=== PATIENT | male | born 1960 | race Caucasian/White ===

== ENCOUNTER 2016-11-20 07:21 | Day surgery (SDC) | payer OTHER ==
[~2016-11-20] VITALS: Ht 167.6 cm; Wt 88.7 kg
[~2016-11-20 07:21] MED LIST: ALPR0.25 PO; ASPI325T4 PO; ATOR20TA38 PO; GABA-526 PO; HYDR-3498 PO; MELO-216 PO; NORT25CA PO; OMEP20CA9 PO; QUET1TAB PO; SERT50TA6 PO; TEMA30CA PO; TEN25 PO; cialis PO
[2016-11-20 07:59] VITALS: Ht 167.6 cm; Wt 88.7 kg
[2016-11-20] MEDS ORDERED: PROPOFOL 40 ML ONE (08:20)
[2016-11-20] MEDS ORDERED: LIDOCAINE 2% (SDV) 5 ML INJ ONE (08:20)
[2016-11-20] MEDS ORDERED: TEN25 PO (08:21)
[2016-11-20] MEDS ORDERED: ALPR0.5T10 PO (08:21)
[2016-11-20] MEDS ORDERED: AMLODIPINE PO (08:21)
[2016-11-20] MEDS ORDERED: GABA-526 PO (08:21)
[2016-11-20] MEDS ORDERED: ASPI81TA3 PO (08:21)
[2016-11-20] MEDS ORDERED: MELO-109 PO (08:21)
[2016-11-20] MEDS ORDERED: ATOR20TA38 PO (08:21)
[2016-11-20 08:31] VITALS: BP 126/80; PULSE 69; RESP 13
[2016-11-20 09:30] VITALS: BP 120/76; RESP 20
--- NOTE | 2016-11-20 11:45 | GILP ---
DATE OF PROCEDURE: 11/20/2016 NAME OF PROCEDURE: Esophagogastroduodenoscopy and biopsy. SURGEON: Miranda Marrufo MD PREOPERATIVE DIAGNOSIS: Abdominal pain. POSTOPERATIVE DIAGNOSES: 1. Hiatal hernia. 2. Gastroesophageal reflux disease. 3. Gastritis. 4. Ulcerated polyp on the gastric antrum and biopsies were taken for histopathology. INDICATION FOR THE PROCEDURE: Mr. Jersey Cunningham is a 56-year-old male patient who had upper abdomi nal pain, not responding to therapy. The patient also had iron deficiency anemia. The patient was scheduled for endoscopic examination for further evaluation. The procedure and possible complications are well explained to the patient. The patient understood and consented to the procedure. DESCRIPTION OF PROCEDURE: Under the influence of anesthesia, the gastroscope was carefully introduc ed into the esophagus and under direct vision, it was advanced to the stomach and through the pyloru s into the duodenal bulb and descending duodenum. FINDINGS: ESOPHAGUS: The patient had hiatal hernia and gastroesophageal reflux disease. STOMACH: The patient had gastritis. He also had an ulcerative flat polyp on the gastric antrum and multiple biopsies were taken for histopathology. DUODENUM: Normal. He tolerated the procedure very well and there was no complication from the procedure. At the end o f the procedure, he was awake with stable vital signs and he was discharged home to the care of his family. IMPRESSION: 1. Hiatal hernia. 2. Gastroesophageal reflux disease. 3. Gastritis. 4. Ulcerative polyp on the gastric antrum and multiple biopsies were taken for histopathology. PLAN: 1. Continue omeprazole. 2. Add Zantac 300 mg p.o. at bedtime. 3. Stop aspirin. 4. Await histopathology report. Dictated By: MIRANDA MARRUFO MD GD/NTS Conf#: [id number] DID#: [id number] CC: MIRANDA MARRUFO MD;*EndCC*
== END 2016-11-20 09:24 | disposition home or self-care (01) ==
LOC: GIL 07:21
PROVIDERS: ATTEND Internal Medicine Gastroenterology
DX: K29.30 Chronic superficial gastritis without bleeding (principal); B96.81 Helicobacter pylori [H. pylori] as the cause of diseases classified elsewhere; K21.9 Gastro-esophageal reflux disease without esophagitis; K44.9 Diaphragmatic hernia without obstruction or gangrene; K31.7 Polyp of stomach and duodenum; K25.9 Gastric ulcer, unspecified as acute or chronic, without hemorrhage or perforation; E78.5 Hyperlipidemia, unspecified; I10 Essential (primary) hypertension; E66.01 Morbid (severe) obesity due to excess calories; Z68.31 Body mass index [BMI] 31.0-31.9, adult
CPT/HCPCS: 43239; Z7610; 88305; 88312

== ENCOUNTER 2017-03-08 00:34 | Inpatient (IN) | payer OTHER ==
[~2017-03-08] VITALS: Ht 172.7 cm; Wt 92.0 kg
[~2017-03-08 00:34] MED LIST changes: -ALPR0.25 PO; +ALPR0.5T10 PO; +AMLODIPINE PO; -ASPI325T4 PO; +ASPI81TA3 PO; +ATEN-138 PO; +MELO-109 PO; -MELO-216 PO; -TEN25 PO
[2017-03-08] MEDS ORDERED: ONDANSETRON 4 MG INJ IV STA (01:17)
[2017-03-08] MEDS ORDERED: HYDROmorphONE 1 MG/ML SYG IV STA (01:17)
[2017-03-08] MEDS ORDERED: SOD CHLORIDE 0.9% 500 ML IV STA (01:17)
[2017-03-08 01:42] LABS: ADD SCAN DIFF NO
[2017-03-08 01:44] LABS: BASOPHIL # 0.1 10^3/ul (0.0-0.1); BASOPHILS % 0.3 % (0.0-2.0); EOSINOPHILS # 0.1 10^3/ul (0.0-0.5); EOSINOPHILS % 0.3 % (0.0-7.0); HEMATOCRIT 37.6 % (42.0-52.0); HEMOGLOBIN 12.9 g/dl (14.0-18.0); LYMPHOCYTES # 2.1 10^3/ul (0.8-2.9); LYMPHOCYTES % 11.8 % (15.0-51.0); MEAN CORPUSCULAR HEMOGLOBIN 28.2 pg (29.0-33.0); MEAN CORPUSCULAR HGB CONC 34.3 g/dl (32.0-37.0); MEAN CORPUSCULAR VOLUME 82.1 fl (82.0-101.0); MEAN PLATELET VOLUME 9.4 fl (7.4-10.4); MONOCYTE # 1.2 10^3/ul (0.3-0.9); MONOCYTES % 6.6 % (0.0-11.0); NEUTROPHIL # 14.6 10^3/ul (1.6-7.5); NEUTROPHILS % 80.4 % (39.0-77.0); PLATELET COUNT 306 10^3/UL (140-415); RED BLOOD COUNT 4.58 10^6/ul (4.70-6.10); RED CELL DISTRIBUTION WIDTH 12.7 % (11.5-14.5); WHITE BLOOD COUNT 18.1 10^3/ul (4.8-10.8)
[2017-03-08 02:06] LABS: ALBUMIN 4.5 g/dl (3.3-4.9); ALBUMIN/GLOBULIN RATIO 1.4; BILIRUBIN,INDIRECT 0.3 mg/dl (0-1.1); BILIRUBIN,TOTAL 0.3 mg/dl (0.2-1.3); CALCIUM 9.4 mg/dl (8.4-10.2); CREATININE 0.96 mg/dl (0.61-1.24); POTASSIUM 3.7 mmol/L (3.5-5.1); TOTAL PROTEIN 7.7 g/dl (6.1-8.1)
[2017-03-08] MEDS ORDERED: ACYCLOVIR 500 MG in SOD CHLORIDE 0.9% 100 ML IVPB ONE (02:30)
[2017-03-08 02:57] VITALS: TEMP 98.6
--- NOTE | 2017-03-08 03:19 | ERA ---
ER Documentation Chief Complaint Date/Time DATE: 03/08/17 TIME: 03:17 Chief Complaint fever, bodyache x 1 week. rash to under lt breast HPI Fever and body aches for 1 week. He started noticing a rash that was vesicular on the left breast for the past 4-5 days. No nausea no vomiting no chills. He says body aches are getting worse. No other current issues. ROS All systems reviewed and are negative except as per history of present illness. Medications Home Meds Reported Medications Alprazolam (Alprazolam) 0.5 Mg Tab.rapdis, 0.5 MG PO BID, TAB 11/20/16 Gabapentin* (Gabapentin*) 600 Mg Tablet, 600 MG PO TID, #90 TAB 11/20/16 Atenolol (Tenormin) 25 Mg Tab, 25 MG PO DAILY, #30 TAB 11/20/16 Meloxicam* (Meloxicam*) 7.5 Mg Tablet, 5 MG PO DAILY, #30 TAB 11/20/16 Aspirin* (Aspirin* Chew) 81 Mg Tab.chew, 81 MG PO DAILY, TAB.CHEW 11/20/16 Atorvastatin Calcium* (Atorvastatin Calcium*) 20 Mg Tablet, 20 MG PO DAILY, #30 TAB 11/20/16 [Amlodipine] No Conflict Check, 5 MG PO DAILY 11/20/16 Temazepam* (Temazepam*) 30 Mg Capsule, 30 MG PO HS Y for INSOMNIA, CAP 09/23/16 Quetiapine Fumarate (Seroquel Xr) 1 Each [id number], 1 EACH PO DAILY 09/23/16 Nortriptyline Hcl* (Nortriptyline Hcl*) 25 Mg Capsule, 25 MG PO HS, CAP 09/23/16 Sertraline Hcl* (Sertraline Hcl*) 50 Mg Tablet, 50 MG PO DAILY, #30 TAB 09/23/16 [cialis] No Conflict Check, PO DAILY 09/23/16 Hydrocodone Bit-Acetaminophen* ([place]*) 5-325 Mg Tab, 1 TAB PO Q4H Y for SEVERE PAIN LEVEL 7-10, TAB 10/01/14 Omeprazole* (Prilosec*) 20 Mg Capsule.dr, 20 MG PO DAILY 02/02/11 Allergies Allergies: Coded Allergies: morphine (Verified Allergy, Intermediate, 11/20/16) HEADACHE CHEST PAIN adhesive tape (Verified Allergy, Unknown, rash, pruritus, 11/20/16) PMhx/Soc History of Surgery: Yes (LOW BACK X3, POST HEAD VEIN REMOVED) Anesthesia Reaction: No Hx Neurological Disorder: No Hx Respiratory Disorders: No Hx Cardiac Disorders: No (HTN, HIGH CHOL) Hx Psychiatric Problems: Yes (DEPRESSION ON MED, ANXIETY, SUISIDE ATTEMPT 2007 ) Hx Miscellaneous Medical Probl: No Hx Alcohol Use: No Hx Substance Use: No Hx Tobacco Use: Yes (QUIT 2004) Physical Exam Vitals Vital Signs Date Time Temp Pulse Resp B/P Pulse Ox O2 Delivery O2 Flow Rate FiO2 03/08/17 02:57 98.6 03/08/17 01:54 99.1 86 18 127/82 98 Room Air 03/08/17 00:45 99.7 99 18 128/72 99 Physical Exam Const: [] Head: Atraumatic Eyes: Normal Conjunctiva ENT: Normal External Ears, Nose and Mouth. Neck: Full range of motion..~ No meningismus. Resp: Clear to auscultation bilaterally Cardio: Regular rate and rhythm, no murmurs Abd: Soft, non tender, non distended. Normal bowel sounds Skin: Vesicular rash crosses multiple dermatomes on the left side of the body. Back: No midline or flank tenderness Ext: No cyanosis, or edema Neur: Awake and alert Psych: Normal Mood and Affect Result Diagram: 03/08/175 03/08/17 0125 Results 24 hrs Laboratory Tests Test 03/08/17 01:25 White Blood Count 18.110^3/ul Red Blood Count 4.5810^6/ul Hemoglobin 12.9g/dl Hematocrit 37.6% Mean Corpuscular Volume 82.1fl Mean Corpuscular Hemoglobin 28.2pg Mean Corpuscular Hemoglobin Concent 34.3g/dl Red Cell Distribution Width 12.7% Platelet Count 76253^3/UL Mean Platelet Volume 9.4fl Neutrophils % 80.4% Lymphocytes % 11.8% Monocytes % 6.6% Eosinophils % 0.3% Basophils % 0.3% Nucleated Red Blood Cells % 0.0/100WBC Neutrophils # 14.610^3/ul Lymphocytes # 2.110^3/ul Monocytes # 1.210^3/ul Eosinophils # 0.110^3/ul Basophils # 0.110^3/ul Nucleated Red Blood Cells # 0.010^3/ul Sodium Level 134mmol/L Potassium Level 3.7mmol/L Chloride Level 101mmol/L Carbon Dioxide Level 23mmol/L Anion Gap 14 Blood Urea Nitrogen 8mg/dl Creatinine 0.96mg/dl Glucose Level 115mg/dl Calcium Level 9.4mg/dl Total Bilirubin 0.3mg/dl Direct Bilirubin 0.00mg/dl Indirect Bilirubin 0.3mg/dl Aspartate Amino Transf (AST/SGOT) 38IU/L Alanine Aminotransferase (ALT/SGPT) 62IU/L Alkaline Phosphatase 66IU/L Total Protein 7.7g/dl Albumin 4.5g/dl Globulin 3.20g/dl Albumin/Globulin Ratio 1.40 Lipase 27U/L Current Medications Medications (Trade) Dose Ordered Sig/Myla Route PRN Reason Start Time Stop Time Status Last Admin Dose Admin Sodium Chloride (NS) 500 ml @ 500 mls/hr Q1H STAT IV 03/08/17 01:17 03/08/17 02:16 DC 03/08/17 01:33 Ondansetron HCl (Zofran Inj) 4 mg ONCE STAT IV 03/08/17 01:17 03/08/17 01:19 DC 03/08/17 01:33 Hydromorphone HCl 1 mg 1 mg ONCE STAT IV 03/08/17 01:17 03/08/17 01:19 DC 03/08/17 01:33 Acyclovir/Sodium Chloride (Zovirax/NS) 100 ml @ 100 mls/hr ONCE ONCE IVPB 03/08/17 02:30 03/08/17 03:29 03/08/17 02:51 Procedures/MDM EKG: Rate/Rhythm: Normal Sinus Rhythm QRS, ST, T-waves: No changes consistent w/ acute ischemia Impression: No evidence of ischemia or arrhythmia Chest X-ray 1V Interpreted by me: Soft Tissue: No acute abnormalities Bones: No acute abnormalities Mediastinum/Cardiac Silhouette/Lungs: No acute abnormalities Medical decision-makin-year-old male as well as be active herpetic zoster across multiple dermatomes. Given the multiple dermatomal distribution, patient has been started on intravenous acyclovir and will be admitted to the medical surgical unit to hospitalist. Departure Diagnosis: Primary Impression: Zoster Qualified Code: B02.9 - Herpes zoster without complication Condition: Serious MOGHADAM,YARED S. Mar 08, 2017 03:19
[2017-03-08 04:29] VITALS: Ht 172.7 cm; Wt 92.0 kg
[2017-03-08] MEDS ORDERED: NON-FORMULARY/PATIENT OWN MED (Temazepam* 30 MG) PO PRN (04:30)
[2017-03-08] MEDS ORDERED: ONDANSETRON 4 MG INJ IV PRN ×2 (04:30)
[2017-03-08] MEDS ORDERED: morphine 4 MG/ML VIAL IV PRN (04:30)
[2017-03-08] MEDS ORDERED: HYDROCODONE/APAP (10/325) TAB PO PRN ×2 (04:30)
[2017-03-08] MEDS ORDERED: morphine 2 MG INJ IV PRN (04:30)
[2017-03-08] MEDS ORDERED: NACL 0.9% 3 ML SYG IV SCH (04:30)
[2017-03-08] MEDS ORDERED: ACETAMINOPHEN 325 MG TAB PO PRN ×2 (04:30)
[2017-03-08] MEDS ORDERED: HYDROmorphONE 1 MG/ML SYG IV PRN ×2 (05:00)
[2017-03-08] MEDS ORDERED: ZOLPIDEM 5 MG TAB PO PRN (05:00)
--- NOTE | 2017-03-08 05:13 | HP ---
DATE OF ADMISSION: 03/08/2017 CHIEF COMPLAINT: Body rash and pain. HISTORY OF PRESENT ILLNESS: The patient is a 57-year-old male with a history of hypertension, dysli pidemia, GERD, depression/anxiety, and history of parietooccipital craniotomy with mild encephalomal acia who presented to the emergency department with the above stated chief complaint. He stated abo ut a week ago he started noticing some fluid filled rashes on the left side of his body, over his le ft ribcage area associated with pain. He also reported fever and chills as well. He has been takin g Gabapentin and [place], but the pain persisted. He denied any chest pain, shortness of breath, sick contacts, or recent travel. When he presented to the ER, he had a temperature of 99.7, and he was tachycardic with a heart rate of almost 100. Otherwise, the rest of his vitals were stable. Laboratory value shows a WBC of 18,0 00, hemoglobin 12.9. Sodium 134. Otherwise, the rest of his CBC and CMP are within acceptable rang e. While he was in the ER, it was determined that the patient's rash is consistent with shingles, and a s such, he was given a dose of acyclovir. Currently, he is admitted to the med/surg [facility] and [facility] that he has 7/10 pain. He was given 1 mg of Dilaudid a couple of hours prior. REVIEW OF SYSTEMS: A 12-point review was performed and negative except as mentioned in HPI. PAST MEDICAL HISTORY: As per HPI. PAST SURGICAL HISTORY: Craniotomy and multiple lumbar spine surgeries due to a work related injury. SOCIAL HISTORY: He smoked half a pack a day off and on since the age of 16, but he quit about 10 ye ars ago. He used to drink about 3 cans of beer every day for at least 10 years, but he quit 10 year s ago. Denied a history of illicit drug use. ALLERGIES: NO KNOWN DRUG ALLERGIES. HOME MEDICATIONS: 1. Atenolol. 2. Lipitor. 3. Alprazolam. 4. Aspirin. 5. Gabapentin. 6. [place]. 7. Meloxicam. 8. Nortriptyline. 9. Seroquel 10. Sertraline. 11. Temazepam. 12. Prilosec. 13. Norvasc. 14. Cialis. PHYSICAL EXAMINATION: VITAL SIGNS: Stable. GENERAL: The patient lying in bed in some discomfort due to pain. He is, however, alert and orient ed and answering questions appropriately. HEENT: No obvious head deformity. Pupils are reactive to light. Extraocular muscles intact. CARDIOVASCULAR: Regular rate and rhythm with no extra sounds. LUNGS: Clear. ABDOMEN: Soft, nontender, nondistended. Positive bowel sounds. EXTREMITIES: No edema. SKIN: On the left side below his breast, there is a dried/crusted skin rash with minimal erythema. LABORATORY DATA: Pertinent positive results as mentioned in the HPI. IMPRESSION: 1. Shingles. 2. Sepsis, as evidenced by leukocytosis and tachycardia, most likely secondary to above. 3. History of hypertension, blood pressure within goal 4. Mild hyponatremia. 5. History of schizophrenia, depression, and anxiety. 6. History of stage I diastolic dysfunction. 7. History of multiple lumbar spine surgeries. 8. History of craniotomy with mild encephalomalacia, based on CT scan from September of this year. PLAN: The patient's rash and his pain seems consistent with shingles. He will be continued with ac yclovir. We will place an ID consult. He will be provided pain medication as needed. We will foll ow up on culture results given the presentation of sepsis. We will continue his home medications wi th adjustments as needed. The patient did receive NS IV fluid in the ER. We will follow up on repe at [facility] to evaluate for resolution of hyponatremia. Further workup and management per clinical course. Dictated By: YARED YUEN/CANDI Conf#: [id number] DID#: [id number]
[2017-03-08] MEDS: PANTOPRAZOLE (EC) 40 MG TAB PO SCH (06:05)
[2017-03-08 07:34] VITALS: BP 111/63; RESP 18
[2017-03-08] MEDS ORDERED: GABAPENTIN 300 MG CAP PO SCH (09:00)
[2017-03-08] MEDS ORDERED: ATORVASTATIN 20 MG TAB PO SCH (09:00)
[2017-03-08] MEDS ORDERED: QUETIAPINE FUMARATE PO SCH (09:00)
[2017-03-08] MEDS ORDERED: ACYCLOVIR 800 MG TAB PO SCH (09:00)
[2017-03-08] MEDS ORDERED: NON-FORMULARY/PATIENT OWN MED (Omeprazole* (Prilosec*) 20 MG) PO SCH (09:00)
[2017-03-08] MEDS ORDERED: ALPRAZOLAM 0.5 MG PO SCH (09:00)
[2017-03-08] MEDS: ASPIRIN 81 MG TAB PO SCH (09:31)
[2017-03-08] MEDS: ATENOLOL 25 MG TAB PO SCH (09:32)
[2017-03-08] MEDS: ALPRAZOLAM 0.25 MG TAB PO SCH ×2 (09:41→20:32)
[2017-03-08] MEDS: SERTRALINE 50 MG TAB PO SCH (09:41)
[2017-03-08] MEDS ORDERED: [UNRECOGNIZED DRUG - REMARK] XX SCH (10:00)
--- NOTE | 2017-03-08 10:10 | PN ---
Date/Time of Note Date/Time of Note DATE: 03/08/17 TIME: 10:02 Assessment/Plan VTE Prophylaxis VTE Prophylaxis Intervention: SCD's Lines/Catheters IV Catheter Type (from Nrsg): Saline Lock Urinary Cath still in place: No Assessment/Plan Assessment/Plan 57 yo M with pmhx obesity, anxiety/depression, chronic pain?, HTN presented with c/o diffuse body pain x 1 week and subjective fevers in setting of recent shingles infection. Admit eval notable for leukocytosis with L shift. Etio unclear-->consider infectious source (?ie UTI given c/o dysuria) v reactive from recent shingles. #myalgias and leukocytosis: check UA, urine culture, blood culture hold abx as no clear infectious focus yet elucidated defer lung imaging as pt without c/o cough or sore throat check CK given pt on statin at home #recent shingles: rash onset >7 days, lesions already appear crusted over given rash onset >72 hours prior to presentation and do not appear to cross dermatome on my clinical eval, no indication to continue antivrals hold neurontin pending continued workup check HIV status #hyponatremia: recheck labs #depression/anxiety cont home TCA, SSRI, seroquel #HTN: cont home BP meds #HL: holding statin as above pending CK misc: cont home asa prophx: LMWH and SCDs, cont home PPI dispo pending resolution of leukocytosis and/or determination of its etio Subjective 24 Hr Interval Summary Free Text/Dictation Language line used to facilitate conversation with patient and . Pt's current concern is 9 days of diffuse body discomfort, myalgias, feels like skin is burning. Also reports several days of dysuria. Reports fevers at home, Tmax 100F several days ago. Pt reports his L torso rash began 7 days ago. Exam/Review of Systems Vital Signs Vitals Vital Signs Date Time Temp Pulse Resp B/P Pulse Ox O2 Delivery O2 Flow Rate FiO2 03/08/17 07:34 99.0 74 18 111/63 18 03/08/17 01:54 Room Air Intake and Output 03/07/17 03/07/17 03/08/17 15:00 23:00 07:00 Intake Total 100 ml Balance 100 ml Exam anxious, laying in bed no mrg lungs clear mild abd discomfort diffusely +suprapubic discomfort no CVA tenderness nl skin: +4 cm cluster of dried vessicles on L anterior thorax in T9 distribution. No lesions on patient's back. No rashes elsewhere no le edema labs from admission reviewed Results Result Diagram: 03/08/17 0125 03/08/17 0125 Results 24 hrs Laboratory Tests Test 03/08/17 01:25 White Blood Count 18.1 #H Red Blood Count 4.58 L Hemoglobin 12.9 L Hematocrit 37.6 L Mean Corpuscular Volume 82.1 Mean Corpuscular Hemoglobin 28.2 L Mean Corpuscular Hemoglobin Concent 34.3 Red Cell Distribution Width 12.7 Platelet Count 306 Mean Platelet Volume 9.4 # Neutrophils % 80.4 H Lymphocytes % 11.8 L Monocytes % 6.6 Eosinophils % 0.3 Basophils % 0.3 Nucleated Red Blood Cells % 0.0 Neutrophils # 14.6 H Lymphocytes # 2.1 Monocytes # 1.2 H Eosinophils # 0.1 Basophils # 0.1 Nucleated Red Blood Cells # 0.0 Sodium Level 134 L Potassium Level 3.7 Chloride Level 101 Carbon Dioxide Level 23 Anion Gap 14 Blood Urea Nitrogen 8 Creatinine 0.96 Glucose Level 115 Calcium Level 9.4 Total Bilirubin 0.3 Direct Bilirubin 0.00 Indirect Bilirubin 0.3 Aspartate Amino Transf (AST/SGOT) 38 Alanine Aminotransferase (ALT/SGPT) 62 Alkaline Phosphatase 66 Total Protein 7.7 Albumin 4.5 Globulin 3.20 Albumin/Globulin Ratio 1.40 Lipase 27 Medications Medications Current Medications Ondansetron HCl (Zofran Inj) 4 mg Q6H PRN IV NAUSEA AND/OR VOMITING; Start 09/12 at 04:30 Acetaminophen (Tylenol Tab) 650 mg Q6H PRN PO PAIN LEVEL 1-3 OR FEVER; Start at 04:30 Aspirin (Aspirin) 81 mg DAILY PO Last administered on 03/08/17 09:31; Admin Dose 81 MG; Start 03/08/17 at 09:00 Atenolol (Tenormin) 25 mg DAILY PO Last administered on 03/08/17 09:32; Admin Dose 25 MG; Start 03/08/17 at 09:00 Gabapentin (Neurontin) 600 mg TID PO Last administered on 03/08/17 09:32; Admin Dose 600 MG; Start 03/08/17 at 09:00 Meloxicam (Mobic) 5 mg DAILY PO ; Start 03/08/17 at 09:00 Nortriptyline HCl (Aventyl) 25 mg HS PO ; Start 03/08/17 at 21:00 Sertraline HCl (Zoloft) 50 mg DAILY PO Last administered on 03/08/17 09:41; Admin Dose 50 MG; Start 03/08/17 at 09:00 Miscellaneous Information 1 each DAILY PO ; Start 03/08/17 at 09:00; Status UNV Acetaminophen/ Hydrocodone Bitart ([place] ()) 1 tab Q4H PRN PO PAIN; Start 03/08/17 at 05:00 Alprazolam (Xanax) 0.25 mg BID PO Last administered on 03/08/17 09:41; Admin Dose 0.25 MG; Start 03/08/17 at 09:00 Pantoprazole (Protonix Tab) 40 mg DAILY@06 PO Last administered on 03/08/17 06 :05; Admin Dose 40 MG; Start 03/08/17 at 06:00 Hydromorphone HCl (Dilaudid) 1 mg Q4H PRN IV PAIN Last administered on 06:06; Admin Dose 1 MG; Start 03/08/17 at 05:00 Miscellaneous Information (*Order Clarification Bulletin) MEDICATION REQUIRES CLARIFICATI... Q8H XX ; Start 03/08/17 at 10:00 RACHELLE ROB MD Mar 08, 2017 10:10
[2017-03-08 11:27] LABS: ADD UMIC YES; URINE BILIRUBIN (Dip) NEGATIVE (NEGATIVE); URINE BLOOD (Dip) TRACE (NEGATIVE); URINE COLOR LT. YELLOW (YELLOW); URINE GLUCOSE (Dip) NEGATIVE (NEGATIVE); URINE KETONES (Dip) NEGATIVE (NEGATIVE); URINE LEUKOCYTE ESTERASE (Dip) 2+ (NEGATIVE); URINE NITRITE (Dip) NEGATIVE (NEGATIVE); URINE TOTAL PROTEIN (Dip) NEGATIVE (NEGATIVE); URINE UROBILINOGEN (Dip) 0.2 E.U./dL (0.1-1.0)
[2017-03-08 11:36] LABS: BACTERIA,URINE MODERATE; URINE RBCS 0-2 /HPF (0)
[2017-03-08] MEDS: MELOXICAM 7.5 MG TAB PO SCH (12:02)
[2017-03-08] MEDS: HYDROCODONE/APAP (10/325) TAB PO PRN (15:32)
[2017-03-08] MEDS ORDERED: traMADol 50 MG TAB PO PRN (18:00)
[2017-03-08 20:09] VITALS: BP 125/66; RESP 20
[2017-03-08] MEDS: NORTRIPTYLINE 25 MG CAP PO SCH (20:34)
[2017-03-08] MEDS: QUETIAPINE 25 MG TAB PO SCH (22:15)
[2017-03-09] MEDS: PANTOPRAZOLE (EC) 40 MG TAB PO SCH (05:22)
[2017-03-09 07:03] LABS: ADD SCAN DIFF NO
[2017-03-09 07:17] LABS: BASOPHIL # 0.1 10^3/ul (0.0-0.1); BASOPHILS % 0.4 % (0.0-2.0); EOSINOPHILS # 0.1 10^3/ul (0.0-0.5); EOSINOPHILS % 0.9 % (0.0-7.0); HEMATOCRIT 35.7 % (42.0-52.0); HEMOGLOBIN 11.7 g/dl (14.0-18.0); LYMPHOCYTES % 21.3 % (15.0-51.0); MEAN CORPUSCULAR HEMOGLOBIN 27.8 pg (29.0-33.0); MEAN CORPUSCULAR HGB CONC 32.8 g/dl (32.0-37.0); MEAN CORPUSCULAR VOLUME 84.8 fl (82.0-101.0); MEAN PLATELET VOLUME 9.9 fl (7.4-10.4); MONOCYTES % 6.8 % (0.0-11.0); NEUTROPHILS % 70.2 % (39.0-77.0); PLATELET COUNT 273 10^3/UL (140-415); RED BLOOD COUNT 4.21 10^6/ul (4.70-6.10); RED CELL DISTRIBUTION WIDTH 13.2 % (11.5-14.5); WHITE BLOOD COUNT 14.2 10^3/ul (4.8-10.8)
[2017-03-09 07:27] LABS: ALBUMIN/GLOBULIN RATIO 1.29; BILIRUBIN,INDIRECT 0.7 mg/dl (0-1.1); BILIRUBIN,TOTAL 0.7 mg/dl (0.2-1.3); CALCIUM 9.2 mg/dl (8.4-10.2); CREATININE 0.99 mg/dl (0.61-1.24); POTASSIUM 4.6 mmol/L (3.5-5.1); TOTAL PROTEIN 7.1 g/dl (6.1-8.1)
[2017-03-09 08:00] VITALS: BP 102/62; RESP 16
[2017-03-09] MEDS: SERTRALINE 50 MG TAB PO SCH (09:07)
[2017-03-09] MEDS: ASPIRIN 81 MG TAB PO SCH (09:07)
[2017-03-09] MEDS: MELOXICAM 7.5 MG TAB PO SCH (09:07)
[2017-03-09] MEDS: ALPRAZOLAM 0.25 MG TAB PO SCH ×2 (09:07→22:05)
[2017-03-09] MEDS: ATENOLOL 25 MG TAB PO SCH (09:08)
[2017-03-09] MEDS: HYDROCODONE/APAP (10/325) TAB PO PRN ×2 (09:14→17:25)
[2017-03-09] MEDS: TRIMETHOPRIM/SULFAMETHOX (DS) TAB PO SCH ×2 (17:21→20:42)
--- NOTE | 2017-03-09 19:08 | PN ---
Date/Time of Note Date/Time of Note DATE: 03/09/17 TIME: 19:07 Assessment/Plan VTE Prophylaxis VTE Prophylaxis Intervention: SCD's Lines/Catheters IV Catheter Type (from Nrsg): Saline Lock Urinary Cath still in place: No Assessment/Plan Assessment/Plan 57 yo M with pmhx obesity, anxiety/depression, chronic pain?, HTN presented with c/o diffuse body pain x 1 week and subjective fevers in setting of recent shingles infection. Most likely cystitis. #cystitis: start empiric bactrim, urine culture still in process #recent shingles: rash onset >7 days, lesions already appear crusted over given rash onset >72 hours prior to presentation and do not appear to cross dermatome on my clinical eval, no indication to continue antivrals hold neurontin pending continued workup HIV negative #chronic back pain: belbuca nonform; pharmacy advised oxycontin 10-20 mg BID as therapeutic interchange #hyponatremia: RESOLVED #depression/anxiety: cont home TCA, SSRI, seroquel #HTN: cont home BP meds #HL: resume home statin misc: cont home asa prophx: LMWH and SCDs, cont home PPI dispo pending resolution of leukocytosis and/or determination of its etio Subjective 24 Hr Interval Summary Free Text/Dictation Pt afebrile. Reports abd pain improving. Home meds list reviewed in greater detail with patient. Pt states and CURES database confirms pt is on belbuca 300 mcg BID daily for chronic back pain Exam/Review of Systems Vital Signs Vitals Vital Signs Date Time Temp Pulse Resp B/P Pulse Ox O2 Delivery O2 Flow Rate FiO2 03/09/17 08:00 98.8 64 16 102/62 97 03/08/17 01:54 Room Air Intake and Output 03/08/17 03/08/17 03/09/17 15:00 23:00 07:00 Intake Total 1880 ml Balance 1880 ml Exam nad, sitting up in bed no mrg lungs clear abd soft no rashes shingles even smaller urine culture with 100k CFU GNRs Results Result Diagram: 03/09/17 0530 03/09/17 0530 Results 24 hrs Laboratory Tests Test 03/09/17 05:30 White Blood Count 14.2 #H Red Blood Count 4.21 L Hemoglobin 11.7 L Hematocrit 35.7 L Mean Corpuscular Volume 84.8 Mean Corpuscular Hemoglobin 27.8 L Mean Corpuscular Hemoglobin Concent 32.8 Red Cell Distribution Width 13.2 Platelet Count 273 Mean Platelet Volume 9.9 Neutrophils % 70.2 Lymphocytes % 21.3 Monocytes % 6.8 Eosinophils % 0.9 Basophils % 0.4 Nucleated Red Blood Cells % 0.0 Neutrophils # 10.0 H Lymphocytes # 3.0 H Monocytes # 1.0 H Eosinophils # 0.1 Basophils # 0.1 Nucleated Red Blood Cells # 0.0 Sodium Level 139 Potassium Level 4.6 Chloride Level 105 Carbon Dioxide Level 26 Anion Gap 13 Blood Urea Nitrogen 11 Creatinine 0.99 Glucose Level 81 Calcium Level 9.2 Total Bilirubin 0.7 Direct Bilirubin 0.00 Indirect Bilirubin 0.7 Aspartate Amino Transf (AST/SGOT) 31 Alanine Aminotransferase (ALT/SGPT) 45 Alkaline Phosphatase 68 Total Protein 7.1 Albumin 4.0 Globulin 3.10 Albumin/Globulin Ratio 1.29 HIV (1&2) Antibody NEGATIVE Medications Medications Current Medications Ondansetron HCl (Zofran Inj) 4 mg Q6H PRN IV NAUSEA AND/OR VOMITING; Start 09/12 at 04:30 Acetaminophen (Tylenol Tab) 650 mg Q6H PRN PO PAIN LEVEL 1-3 OR FEVER; Start at 04:30 Aspirin (Aspirin) 81 mg DAILY PO Last administered on 03/09/17 09:07; Admin Dose 81 MG; Start 03/08/17 at 09:00 Atenolol (Tenormin) 25 mg DAILY PO Last administered on 03/09/17 09:08; Admin Dose 25 MG; Start 03/08/17 at 09:00 Meloxicam (Mobic) 5 mg DAILY PO Last administered on 03/09/17 09:07; Admin Dose 5 MG; Start 03/08/17 at 09:00 Nortriptyline HCl (Aventyl) 25 mg HS PO Last administered on 03/08/17 20:34; Admin Dose 25 MG; Start 03/08/17 at 21:00 Sertraline HCl (Zoloft) 50 mg DAILY PO Last administered on 03/09/17 09:07; Admin Dose 50 MG; Start 03/08/17 at 09:00 Acetaminophen/ Hydrocodone Bitart ([place] (10/325)) 1 tab Q4H PRN PO PAIN Last administered on 03/09/17 17:25; Admin Dose 1 TAB; Start 03/08/17 at 05:00 Alprazolam (Xanax) 0.25 mg BID PO Last administered on 03/09/17 09:07; Admin Dose 0.25 MG; Start 03/08/17 at 09:00 Pantoprazole (Protonix Tab) 40 mg DAILY@06 PO Last administered on 03/09/17 05 :22; Admin Dose 40 MG; Start 03/08/17 at 06:00 Quetiapine Fumarate (Seroquel) 50 mg QHS PO Last administered on 03/08/17 22: 15; Admin Dose 50 MG; Start 03/08/17 at 21:00 Tramadol HCl (Ultram) 50 mg Q6H PRN PO PAIN Last administered on 03/08/17 18: 13; Admin Dose 50 MG; Start 03/08/17 at 18:00 Trimethoprim/ Sulfamethoxazole (Bactrim (Ds)) 1 tab BID PO Last administered on 03/09/17 17:21; Admin Dose 1 TAB; Start 03/09/17 at 14:30 RACHELLE ROB MD Mar 09, 2017 19:08
[2017-03-09 19:55] VITALS: BP 111/64; RESP 20
[2017-03-09] MEDS: NORTRIPTYLINE 25 MG CAP PO SCH (20:42)
[2017-03-09] MEDS: oxyCODONE (CR) 10 MG TAB [oxyCONTIN] PO SCH (20:42)
[2017-03-09] MEDS: QUETIAPINE 25 MG TAB PO SCH (22:05)
[2017-03-10] MEDS: PANTOPRAZOLE (EC) 40 MG TAB PO SCH (05:29)
[2017-03-10] MEDS: ALPRAZOLAM 0.25 MG TAB PO SCH (08:31)
[2017-03-10] MEDS: oxyCODONE (CR) 10 MG TAB [oxyCONTIN] PO SCH (08:31)
[2017-03-10] MEDS: MELOXICAM 7.5 MG TAB PO SCH (08:31)
[2017-03-10] MEDS: ASPIRIN 81 MG TAB PO SCH (08:32)
[2017-03-10] MEDS: ATENOLOL 25 MG TAB PO SCH (08:32)
[2017-03-10] MEDS: TRIMETHOPRIM/SULFAMETHOX (DS) TAB PO SCH (08:32)
[2017-03-10] MEDS: SERTRALINE 50 MG TAB PO SCH (08:32)
[2017-03-10 08:33] VITALS: BP 118/67; RESP 18
[2017-03-10 08:37] VITALS: BP 118/67; PULSE 64
[2017-03-10] MEDS ORDERED: Trimethoprim/Sulfamethox (Ds) PO (09:01)
--- NOTE | 2017-03-10 09:02 | PDOCDIS ---
Discharge Instructions CONDITION Patient Condition: Good HOME CARE INSTRUCTIONS: Special Diet: LOW SODIUM/ LOW FAT DIET FOLLOW UP/APPOINTMENTS Appointments Follow up with your regular doctor within 7 days Resume taking your regular pain medications for your back RACHELLE ROB MD Mar 10, 2017 09:02
--- NOTE | 2017-03-10 09:05 | DS ---
Date/Time of Note Date/Time of Note DATE: 03/10/17 TIME: 09:04 Discharge Summary Admission/Discharge Info Admit Date/Time Mar 08, 2017 at 02:33 Discharge Date/Time Final Diagnosis cystitis, shingles (present on admission) Patient Condition: Good Consults none Procedures blood cultures 6.12 ng x2 urine culture 6.12 URINE CULTURE Final Organism 1 ESCHERICHIA COLI COLONY COUNT >100,000 CFU/ml E COLI M.I.C. RX --------- --- AMPICILLIN >=32 R CEFAZOLIN S CEFOTAXIME S CIPROFLOXACIN <=0.25 S GENTAMICIN <=1 S LEVOFLOXACIN <=0.12 S NITROFURANTOIN <=16 S TOBRAMYCIN <=1 S TRIMETHOPRIM/SULFAMETHOXAZOLE <=20 S Hx of Present Illness 57 yo M prented to the emergency department with the above stated chief complaint. He stated about a week ago he started noticing some fluid filled rashes on the left side of his body, over his left ribcage area associated with pain. He also reported fever and chills as well. He has been taking Gabapentin and [place], but the pain persisted. He denied any chest pain, shortness of breath, sick contacts, or recent travel. When he presented to the ER, he had a temperature of 99.7, and he was tachycardic with a heart rate of almost 100. Otherwise, the rest of his vitals were stable. Laboratory value shows a WBC of 18,000, hemoglobin 12.9. Sodium 134. Otherwise, the rest of his CBC and CMP are within acceptable range. While he was in the ER, it was determined that the patient's rash is consistent with shingles, and as such, he was given a dose of acyclovir. Currently, he is admitted to the med/surg floor and stating that he has 7/10 pain. He was given 1 mg of Dilaudid a couple of hours prior. Hospital Course Given pt's shingles rash had began >72 hours prior to presentation, no compelling indication to continue antivirals. Vesicles had already crusted over. Did not extend over multiple dermatomes, consistent with uncomplicated disease. Pt with c/o dysuria and fevers, concerning for cystitis. UA and urine culture were obtained. UA with pyuria, urine culture with EColi. Pt started on Bactrim and his symptoms improved. Pt afebrile x >24 hours at time of discharge. No changes made to admission meds other than rx for short course of Bactrim. Home Meds Active Scripts [Trimethoprim/Sulfamethox (Ds)] 1 TAB TAB No Conflict Check, 1 TAB PO BID for 6 Days, #12 Prov:RACHELLE ROB MD 03/10/17 Reported Medications Alprazolam (Alprazolam) 0.5 Mg Tab.rapdis, 0.5 MG PO BID, TAB 11/20/16 Atenolol (Tenormin) 25 Mg Tab, 25 MG PO DAILY, #30 TAB 11/20/16 Meloxicam* (Meloxicam*) 7.5 Mg Tablet, 5 MG PO DAILY, #30 TAB 11/20/16 Aspirin* (Aspirin* Chew) 81 Mg Tab.chew, 81 MG PO DAILY, TAB.CHEW 11/20/16 Atorvastatin Calcium* (Atorvastatin Calcium*) 20 Mg Tablet, 20 MG PO DAILY, #30 TAB 11/20/16 [Amlodipine] No Conflict Check, 5 MG PO DAILY 11/20/16 Temazepam* (Temazepam*) 30 Mg Capsule, 30 MG PO HS Y for INSOMNIA, CAP 09/23/16 Quetiapine Fumarate (Seroquel Xr) 1 Each [id number], 1 EACH PO DAILY 09/23/16 Nortriptyline Hcl* (Nortriptyline Hcl*) 25 Mg Capsule, 25 MG PO HS, CAP 09/23/16 Sertraline Hcl* (Sertraline Hcl*) 50 Mg Tablet, 50 MG PO DAILY, #30 TAB 09/23/16 [cialis] No Conflict Check, PO DAILY 09/23/16 Omeprazole* (Prilosec*) 20 Mg Capsule.dr, 20 MG PO DAILY 02/02/11 Discontinued Reported Medications Gabapentin* (Gabapentin*) 600 Mg Tablet, 600 MG PO TID, #90 TAB 11/20/16 Hydrocodone Bit-Acetaminophen* ([place]*) 5-325 Mg Tab, 1 TAB PO Q4H Y for SEVERE PAIN LEVEL 7-10, TAB 10/01/14 Follow-up Plan PCP within 7 days Primary Care Provider Not On Staff Doctor Time spent on discharge: > 30 minutes RACHELLE ROB MD Mar 10, 2017 09:05
== END 2017-03-10 10:55 | disposition home or self-care (01) | DRG 872 ==
LOC: E/R 00:34 → MS2 02:33
PROVIDERS: ADMIT Internal Medicine; ATTEND Internal Medicine
DX: A41.9 Sepsis, unspecified organism (principal); E87.1 Hypo-osmolality and hyponatremia; I10 Essential (primary) hypertension; E66.9 Obesity, unspecified; B96.20 Unspecified Escherichia coli [E. coli] as the cause of diseases classified elsewhere; B02.9 Zoster without complications; G89.29 Other chronic pain; N30.90 Cystitis, unspecified without hematuria; K21.9 Gastro-esophageal reflux disease without esophagitis; F41.8 Other specified anxiety disorders; F32.9 Major depressive disorder, single episode, unspecified; F41.9 Anxiety disorder, unspecified; F17.200 Nicotine dependence, unspecified, uncomplicated; M54.9 Dorsalgia, unspecified; R21 Rash and other nonspecific skin eruption; Z68.30 Body mass index [BMI] 30.0-30.9, adult; Z98.890 Other specified postprocedural states; Z79.82 Long term (current) use of aspirin; Z86.79 Personal history of other diseases of the circulatory system
CPT/HCPCS: 36415; 80053; 81001; 82550; 83690; 85025; 86703; 87040; 87086; 96365; 96375; J0133; J1170; J2405; J7040

== ENCOUNTER 2017-03-15 15:37 | Outpatient (CLI) | payer OTHER ==
[~2017-03-15] VITALS: Ht 172.7 cm; Wt 91.4 kg
[~2017-03-15 15:37] MED LIST changes: -GABA-526 PO; -HYDR-3498 PO; +Trimethoprim/Sulfamethox (Ds) PO
[2017-03-15 15:55] VITALS: Ht 172.7 cm; Wt 91.4 kg
[2017-03-15 15:57] VITALS: BP 128/74; PULSE 94; RESP 18
--- NOTE | 2017-03-15 16:00 | PN ---
Date/Time of Note Date/Time of Note DATE: 03/15/17 TIME: 15:54 Outpatient Progress Note Chief Complaint Single/hypertension/hyperlipidemia/back pain/PUD/depression HPI Shingles/patient has a herpes zoster, patient has a healing rash on the left side of the chest wall, minimal discomfort, Hypertension/no headache or dizziness or lightheadedness, Hyperlipidemia/no xanthoma, on medication, no side effect of medication, Back pain/patient has back pain, on pain medication, no change in pain medication and no change in a back pain, PUD/patient still has occasional heartburn, hematemesis melena, Depression patient has history of depression, on medication, no side effect of medication, Review of Systems Const: No Fever, no chills, no Wt. loss, no Fatigue, normal appetite, no diaphoresis. Eyes: No pain, no discharge, no redness, no visual change, no foreign body. ENT: No pain, no bleeding, no congestion, no sore throat, no dysphagia, no discharge or rhinitis. Lymph: No adenopathy, no tender nodes, no lymphedema. Resp: No SOB, no cough, no sputum, no wheezing, no chest pain. CV: No chest pain, no palpitaions, no ELLER, no PND, no edema. GI: Normal appetite, no pain, no nausea, no vomiting, no diarrhea, no blood, no constipation. Occasional heartburn, and scar of previous surgery, : No frequency, no urgency, no dysuria, no hematuria, no flank pain, no discharge, no bleeding. Musc: No bone/joint pain, no back pain, no neck pain, no knee pain, no restricted ROM. Skin: Left-sided chest wall o rash, no skin lesions, no erythema, no laceration , no bruising, no pruritus. Neuro: No NEAL, no dizziness, no syncope, no seizure, no focal-weakness. Endo: No polyuria, no polydypsia, no dry-skin, no temp-intolerance. Psych: No hallucinations, no depression, no anxiety, no suicidal ideation. Ext: No edema, no pain, no ulcer, no weakness. Physical Exam General Appearance: A 57 year-old male who appears well-developed, well- nourished, in no acute distress. HEENT: Head normocephalic, atraumatic. Pupils equal, round, reactive to light and accommodate. Sclerae are no jaundice. Nasal turbinates pink without erythema or nasal discharge. Mucous membranes pink and moist without lesions. Oropharynx clear without any exudate or discharge. NECK: Supple. Trachea midline, No thyromegaly, No cervical lymphadenopathy, No mass, No carotid bruits, No JVD, Carotid pulses 2+ bilaterally. PULMONARY: Clear to auscultaion bilaterally, No retractions, Chest expansion symmetric bilaterally, no rales, no ronchi, no dulness on percussion. CARDIAC: Normal SI and S2, Regular rate and rythm, no murmur, gallop, or rub. GASTROINTESTINAL: Abdomen is soft, non-tender, Non Rigid, No distention, Positive bowel sounds x4 quadrants, Liver normal. SKIN: Warm, dry, left-sided chest wall rash improving, no redness, no discharge, , no bruise, no echmosis. Herpes zoster's rash on the chest wall on the left side, healing, no infection, EXTREMITIES: Bilateral lower extremities normal, no edema, no phlabitus, pulse palpable, no contracture. MUSCULOSKELETAL: Spine Normal, Non-tender lumbosacral discomfort no change,, Normal range of motion, No swelling, no deformity, no clubbing, or cyanosis, the patient has no edema to bilateral lower extremities, dorsalis pedis pulses palpable bilaterally. NEUROLOGIC: The patient is awake, alert, oriented, responding to yes/no questions appropriately, moving all extremities, cranial nerve intact, normal strenght, normal power, normal coordination, normal gait. Allergies Coded Allergies: morphine (Verified Allergy, Intermediate, 11/20/16) HEADACHE CHEST PAIN adhesive tape (Verified Allergy, Unknown, rash, pruritus, 11/20/16) PMH Craniotomy hypertension/hyperlipidemia/back pain/PUD/depression Multiple abdominal surgery and back surgery Social Hx No smoking no drinking, Patient smokes half a pack of cigarettes per day since age of 16 but quit 10 years ago, used to drink about 3 cans of beer every day for at least 10 years, but quit 10 years ago, no use of drugs, Family Hx Noncontributory Patient History: Endocrine and metabolic disease 32 MOTHER, , Age:60 years and older Hypertension 32 MOTHER, , Age:60 years and older Assessment/Plan Impression Single/hypertension/hyperlipidemia/back pain/PUD/depression Plan Patient education done about a bowel disease, Reason encouraged to follow with the primary care physician, Patient had present and no cellulitis, no infection, will monitor closely, at present with the pain medication patient pain is controlled, Patient education done about controlling her blood pressure, Medications Home Meds Active Scripts [Trimethoprim/Sulfamethox (Ds)] 1 TAB TAB No Conflict Check, 1 TAB PO BID for 6 Days, #12 Prov:RACHELLE ROB MD 03/10/17 Reported Medications Alprazolam (Alprazolam) 0.5 Mg Tab.rapdis, 0.5 MG PO BID, TAB 11/20/16 Atenolol (Tenormin) 25 Mg Tab, 25 MG PO DAILY, #30 TAB 11/20/16 Meloxicam* (Meloxicam*) 7.5 Mg Tablet, 5 MG PO DAILY, #30 TAB 11/20/16 Aspirin* (Aspirin* Chew) 81 Mg Tab.chew, 81 MG PO DAILY, TAB.CHEW 11/20/16 Atorvastatin Calcium* (Atorvastatin Calcium*) 20 Mg Tablet, 20 MG PO DAILY, #30 TAB 11/20/16 [Amlodipine] No Conflict Check, 5 MG PO DAILY 11/20/16 Temazepam* (Temazepam*) 30 Mg Capsule, 30 MG PO HS Y for INSOMNIA, CAP 09/23/16 Quetiapine Fumarate (Seroquel Xr) 1 Each [id number], 1 EACH PO DAILY 09/23/16 Nortriptyline Hcl* (Nortriptyline Hcl*) 25 Mg Capsule, 25 MG PO HS, CAP 09/23/16 Sertraline Hcl* (Sertraline Hcl*) 50 Mg Tablet, 50 MG PO DAILY, #30 TAB 09/23/16 [cialis] No Conflict Check, PO DAILY 09/23/16 Omeprazole* (Prilosec*) 20 Mg Capsule.dr, 20 MG PO DAILY 02/02/11 Discontinued Reported Medications Gabapentin* (Gabapentin*) 600 Mg Tablet, 600 MG PO TID, #90 TAB 11/20/16 Hydrocodone Bit-Acetaminophen* ([place]*) 5-325 Mg Tab, 1 TAB PO Q4H Y for SEVERE PAIN LEVEL 7-10, TAB 10/01/14 ODILON GUTIERREZ MD Mar 15, 2017 16:00
== END 2017-03-15 16:23 | disposition home or self-care (01) ==
LOC: DCC 15:37
PROVIDERS: ATTEND Internal Medicine
DX: B02.9 Zoster without complications (principal); I10 Essential (primary) hypertension; E78.5 Hyperlipidemia, unspecified; M54.9 Dorsalgia, unspecified; F32.9 Major depressive disorder, single episode, unspecified; K27.9 Peptic ulcer, site unspecified, unspecified as acute or chronic, without hemorrhage or perforation

== ENCOUNTER 2017-04-05 11:28 | Outpatient (CLI) | payer OTHER ==
[~2017-04-05] VITALS: Ht 172.7 cm; Wt 93.0 kg
[~2017-04-05 11:28] MED LIST changes: -ATEN-138 PO; -Trimethoprim/Sulfamethox (Ds) PO
[2017-04-05 11:49] VITALS: Ht 172.7 cm; Wt 93.0 kg
[2017-04-05 11:50] VITALS: BP 134/81; PULSE 74; RESP 18
--- NOTE | 2017-04-05 12:19 | PN ---
Date/Time of Note Date/Time of Note DATE: 04/05/17 TIME: 12:15 Outpatient Progress Note Chief Complaint Shingles/hypertension/hyperlipidemia/PUD HPI Shingles/patient had a single, rash on the left side of chest completely resolved, patient complained of medication, no pain, Hypertension/no headache or dizziness, no local focal weakness, blood pressure fairly controlled, Hyperlipidemia/no xanthoma, on medication, side effect of medication, PUD/no nausea vomiting, no heartburn, no hematemesis or melena, Review of Systems Const: No Fever, no chills, no Wt. loss, no Fatigue, normal appetite, no diaphoresis. Patient slightly obese, ENT: No pain, no bleeding, no congestion, no sore throat, no dysphagia, no discharge or rhinitis. Lymph: No adenopathy, no tender nodes, no lymphedema. Resp: No SOB, no cough, no sputum, no wheezing, no chest pain. CV: No chest pain, no palpitaions, no ELLER, no PND, no edema. GI: Normal appetite, no pain, no nausea, no vomiting, no diarrhea, no blood, no constipation. : No frequency, no urgency, no dysuria, no hematuria, no flank pain, no discharge, no bleeding. Musc: No back pain, no neck pain, no knee pain, no restricted ROM. Skin: Chest wall rash resolving, no skin lesions, no erythema, no laceration, no bruising, no pruritus. Neuro: No NEAL, no dizziness, no syncope, no seizure, no focal-weakness. Endo: No polyuria, no polydypsia, no dry-skin, no temp-intolerance. Psych: No hallucinations, no depression, no anxiety, no suicidal ideation. Ext: No edema, no pain, no ulcer, no weakness. Physical Exam Vital Signs Date Time Temp Pulse Resp B/P Pulse Ox O2 Delivery O2 Flow Rate FiO2 04/05/17 11:50 98.0 74 18 134/81 97 Room Air General Appearance: A 57 year-old male who appears well-developed, well- nourished, in no acute distress. Patient slightly obese, HEENT: Head normocephalic, atraumatic. Pupils equal, round, reactive to light and accommodate. Sclerae are no jaundice. Nasal turbinates pink without erythema or nasal discharge. Mucous membranes pink and moist without lesions. Oropharynx clear without any exudate or discharge. NECK: Supple. Trachea midline, No thyromegaly, No cervical lymphadenopathy, No mass, No carotid bruits, No JVD, Carotid pulses 2+ bilaterally. PULMONARY: Clear to auscultaion bilaterally, No retractions, Chest expansion symmetric bilaterally, no rales, no ronchi, no dulness on percussion. CARDIAC: Normal SI and S2, Regular rate and rythm, no murmur, gallop, or rub. GASTROINTESTINAL: Abdomen is soft, non-tender, Non Rigid, No distention, Positive bowel sounds x4 quadrants, Liver normal. SKIN: Warm, dry, chest wall rash, resolved, no pain, no bruise, no echmosis. EXTREMITIES: Bilateral lower extremities normal, no edema, no phlabitus, pulse palpable, no contracture. MUSCULOSKELETAL: Spine Normal, Non-tender, Normal range of motion, No swelling, no deformity, no clubbing, or cyanosis, the patient has no edema to bilateral lower extremities, dorsalis pedis pulses palpable bilaterally. NEUROLOGIC: The patient is awake, alert, oriented, responding to yes/no questions appropriately, moving all extremities, cranial nerve intact, normal strenght, normal power, normal coordination, normal gait. Allergies Coded Allergies: morphine (Verified Allergy, Intermediate, 11/20/16) HEADACHE CHEST PAIN adhesive tape (Verified Allergy, Unknown, rash, pruritus, 11/20/16) PMH No change Social Hx No change Family Hx No change Patient History: Endocrine and metabolic disease 32 MOTHER, , Age:60 years and older Hypertension 32 MOTHER, , Age:60 years and older Assessment/Plan Impression Single resolved Hypertension Hyperlipidemia PUD Plan Patient education done about shingles, hypertension and hyperlipidemia, patient doing well, patient has all the medication, Patient to follow with the primary care physician, Because of the shingles patient advised to follow-up with the primary care physician and further workup, Medications Home Meds Reported Medications Alprazolam (Alprazolam) 0.5 Mg Tab.rapdis, 0.5 MG PO BID, TAB 11/20/16 Meloxicam* (Meloxicam*) 7.5 Mg Tablet, 5 MG PO DAILY, #30 TAB 11/20/16 Aspirin* (Aspirin* Chew) 81 Mg Tab.chew, 81 MG PO DAILY, TAB.CHEW 11/20/16 Atorvastatin Calcium* (Atorvastatin Calcium*) 20 Mg Tablet, 20 MG PO DAILY, #30 TAB 11/20/16 [Amlodipine] No Conflict Check, 5 MG PO DAILY 11/20/16 Temazepam* (Temazepam*) 30 Mg Capsule, 30 MG PO HS Y for INSOMNIA, CAP 09/23/16 Quetiapine Fumarate (Seroquel Xr) 1 Each [id number], 1 EACH PO DAILY 09/23/16 Nortriptyline Hcl* (Nortriptyline Hcl*) 25 Mg Capsule, 25 MG PO HS, CAP 09/23/16 Sertraline Hcl* (Sertraline Hcl*) 50 Mg Tablet, 50 MG PO DAILY, #30 TAB 09/23/16 [cialis] No Conflict Check, PO DAILY 09/23/16 Omeprazole* (Prilosec*) 20 Mg Capsule., 20 MG PO DAILY 02/02/11 ODILON GUTIERREZ MD Apr 05, 2017 12:18
== END 2017-04-05 17:00 | disposition home or self-care (01) ==
LOC: DCC 11:28
PROVIDERS: ATTEND Internal Medicine
DX: I10 Essential (primary) hypertension (principal); E78.5 Hyperlipidemia, unspecified; B02.9 Zoster without complications; K27.9 Peptic ulcer, site unspecified, unspecified as acute or chronic, without hemorrhage or perforation

== ENCOUNTER 2018-09-23 17:59 | Emergency (ER) | payer OTHER ==
[~2018-09-23] VITALS: Wt 86.8 kg
[~2018-09-23 17:59] MED LIST changes: +ASPI-903 PO; -ASPI81TA3 PO; -MELO-109 PO; +MELO7.5T38 PO
[2018-09-23 18:01] VITALS: BP 135/80; PULSE 83; RESP 18
[2018-09-23] MEDS ORDERED: KETOROLAC 30 MG INJ IM STA (19:15)
[2018-09-23] MEDS ORDERED: HYDROCODONE/APAP (5/325) TAB PO ONE (19:30)
--- NOTE | 2018-09-23 20:16 | ERD ---
ER Documentation Chief Complaint Chief Complaint RT shoulder pain [id number] radiates to finger tips HPI 58-year-old male presents with right shoulder pain that he has had for 2 weeks. No trauma. He does have occasional numbness and tingling in his fingers with sharp shooting pain. He has been taking naproxen at home but it does not help. No chest pain palpitations or shortness of breath. ROS All systems reviewed and are negative except as per history of present illness. Medications Home Meds Active Scripts Tramadol HCl (Tramadol HCl) 50 Mg Tablet, 50 MG PO Q6 PRN for PAIN, #20 TAB Prov:LATIA ACKERMAN PA-C 09/23/18 Ibuprofen* (Motrin*) 800 Mg Tab, 800 MG PO Q6, #30 TAB Prov:LATIA ACKERMAN PA-C 09/23/18 Cyclobenzaprine Hcl* (Cyclobenzaprine Hcl*) 10 Mg Tablet, 10 MG PO BID, #15 TAB Prov:LATIA ACKERMAN PA-C 09/23/18 Reported Medications Alprazolam (Alprazolam) 0.5 Mg Tab.rapdis, 0.5 MG PO BID, TAB 11/20/16 Meloxicam* (Meloxicam*) 7.5 Mg Tablet, 5 MG PO DAILY, #30 TAB 11/20/16 Aspirin* (Aspirin* Chew) 81 Mg Tab.chew, 81 MG PO DAILY, TAB.CHEW 11/20/16 Atorvastatin Calcium* (Atorvastatin Calcium*) 20 Mg Tablet, 20 MG PO DAILY, #30 TAB 11/20/16 [Amlodipine] No Conflict Check, 5 MG PO DAILY 11/20/16 Temazepam* (Temazepam*) 30 Mg Capsule, 30 MG PO HS PRN for INSOMNIA, CAP 09/23/16 Quetiapine Fumarate (Seroquel Xr) 1 Each [id number], 1 EACH PO DAILY 09/23/16 Nortriptyline Hcl* (Nortriptyline Hcl*) 25 Mg Capsule, 25 MG PO HS, CAP 09/23/16 Sertraline Hcl* (Sertraline Hcl*) 50 Mg Tablet, 50 MG PO DAILY, #30 TAB 09/23/16 [cialis] No Conflict Check, PO DAILY 09/23/16 Omeprazole* (Prilosec*) 20 Mg Capsule.dr, 20 MG PO DAILY 02/02/11 Allergies Allergies: Coded Allergies: morphine (Verified Allergy, Intermediate, 11/20/16) HEADACHE CHEST PAIN adhesive tape (Verified Allergy, Unknown, rash, pruritus, 11/20/16) PMhx/Soc History of Surgery: Yes (BRAIN SX, BACK SX, ) Anesthesia Reaction: No Hx Neurological Disorder: No Hx Respiratory Disorders: No Hx Cardiac Disorders: Yes (HTN) Hx Psychiatric Problems: Yes (DEPRESSION, ANXIETY) Hx Miscellaneous Medical Probl: Yes Hx Alcohol Use: No Hx Substance Use: No Hx Tobacco Use: No Smoking Status: Never smoker FmHx Family History: No diabetes Physical Exam Vitals Vital Signs Date Temp Pulse Resp B/P (MAP) Pulse Ox O2 O2 Flow FiO2 Time Delivery Rate 09/23/18 97.8 83 18 135/80 96 18:01 (98) Physical Exam Const: No acute distress Head: Atraumatic Eyes: Normal Conjunctiva ENT: Normal External Ears, Nose and Mouth. Neck: Full range of motion. No meningismus. Resp: Clear to auscultation bilaterally Cardio: Regular rate and rhythm, no murmurs Upper Extremity - right: Skin: [No laceration, or evidence of external trauma] Compartments: [Soft] Motor: [Full active range of motion shoulder/elbow/wrist/hand] Sensation: [Intact shoulder/pinky/middle finger/thumb web space] Bones: [Nontender humerus/elbow/forearm/wrist/hand] Snuffbox: [Nontender] Joints: [No effusion] Pulses/Perfusion: [2+ radial, Capillary refill < 2 seconds] Results 24 hrs Current Medications Medications Dose Sig/Myla Start Time Status Last (Trade) Ordered Route PRN Stop Time Admin Dose Reason Admin Ketorolac 30 mg ONCE STAT 09/23/18 DC 09/23/18 Tromethamine IM 19:15 19:28 (Toradol) 09/23/18 19:17 1 tab ONCE ONCE 09/23/18 DC 09/23/18 Acetaminophen PO 19:30 19:28 / 09/23/18 Hydrocodone 19:31 Bitart ([place] (5/325)) Procedures/MDM 58-year-old male presents with right shoulder pain. No trauma. He is ne urovascular intact. He was given Toradol and [place] with improvement and discharged with ibuprofen, tramadol, and Flexeril. Patient counseled regarding my diagnostic impression and care plan. Prior to discharge all questions answered. Pt agrees with treatment plan and understands strict return precautions. Pt is instructed to follow up with primary care provider within 24- 48 hours. Precautionary instructions provided including instructions to return to the ER if not improving or for any worsening or changing symptoms or concerns. Departure Diagnosis: Primary Impression: Shoulder pain Condition: Stable LATIA ACKERMAN PA-C Sep 23, 2018 20:16
[2018-09-23] MEDS ORDERED: TRAM50TA2 PO (20:21)
[2018-09-23] MEDS ORDERED: IBUP800T48 PO (20:21)
[2018-09-23] MEDS ORDERED: CYCL10TA7 PO (20:21)
== END 2018-09-23 20:43 | disposition home or self-care (01) ==
LOC: FTE 17:59
DX: M25.511 Pain in right shoulder (principal); I10 Essential (primary) hypertension; Z79.82 Long term (current) use of aspirin
CPT/HCPCS: 73030; J1885; Z7610; 96372